=== PATIENT | male | born 1940 | race Hispanic/Latino ===

== ENCOUNTER 2020-01-30 07:13 | Day surgery (SDC) | payer OTHER ==
[2020-01-26 14:53] LABS: BASOPHILS % (AUTO) 0.4 % (0.0-5.0); EOSINOPHILS % (AUTO) 0.4 % (0.0-8.0); HEMATOCRIT 42.1 % (42-54); LYMPHOCYTES % (AUTO) 77.2 % (21.0-51.0); MEAN CORPUSCULAR HEMOGLOBIN 33.8 pg (27.0-33.0); MEAN CORPUSCULAR HGB CONC 34.2 g/dL (32.0-36.0); MEAN CORPUSCULAR VOLUME 98.8 fL (79-99); MONOCYTES % (AUTO) 2.4 % (3.0-13.0); NEUTROPHILS % (AUTO) 19.5 % (40.0-77.0); PLATELET COUNT (AUTO) 208 K/uL (130-400); RED BLOOD CELL COUNT(AUTO) 4.26 MIL/uL (4.50-6.20); RED CELL DISTRIBUTION WIDTH 11.9 % (11.0-15.5); WHITE BLOOD COUNT (AUTO) 21.9 K/uL (4.8-10.8)
[2020-01-26 14:56] LABS: APPEARANCE,URINE Clear (CLEAR); BILIRUBIN,URINE Negative (NEGATIVE); COLOR,URINE Yellow (YELLOW); GLUCOSE, URINE (UA) Negative (NEGATIVE); KETONES,URINE Negative (NEGATIVE); LEUKOCYTE ESTERASE ,URINE Negative (NEGATIVE); NITRATE,URINE Negative (NEGATIVE); OCCULT BLOOD,URINE Negative (NEGATIVE); PROTEIN,URINE Negative (NEGATIVE)
[2020-01-26 15:03] LABS: CREATININE 1.3 mg/dL (0.5-1.5); POTASSIUM 4.1 mmol/L (3.5-5.1)
[2020-01-26 15:04] LABS: INR 0.92 (0.85-1.15); PARTIAL THROMBOPLASTIN TIME 25.7 SEC (26.3-35.5)
[2020-01-26 15:51] LABS: BAND NEUTROPHILS % (MANUAL) 1 % (0-2); EOSINOPHILS % (MANUAL) 1 % (1-6); LYMPHOCYTES % (MANUAL) 46 % (22-44); MONOCYTES % (MANUAL) 1 % (2-9); REACTIVE LYMPHOCYTES 22 % (0-0); SEGMENTED NEUTROPHILS % 29 % (40-70)
[2020-01-26 15:52] LABS: MAN.DIFF COMMENT-IMPRESSION MANUAL DIFFERENTIAL
[2020-01-27 14:44] VITALS: BP 138/66
[2020-01-30] VITALS (9 sets, daily range): BP systolic 123–141; BP diastolic 62–86
[~2020-01-30] VITALS: Ht 172.7 cm; Wt 88.2 kg
[~2020-01-30 07:13] MED LIST: AMLO-97 PO; ASPI-1012 PO; CLON0.2T PO; FURO20TA4 PO; LEVO5TAB13 PO; MELO-108 PO; METO-409 PO; PRAV20TA4 PO; SITA100T12 PO; TAMS-1 PO; VITAMIN B12 PO
[2020-01-30] MEDS ORDERED: SODIUM CHLORIDE 0.9% 1000ML 1,000 ML IV ONE (07:37)
[2020-01-30] MEDS ORDERED: HEPARIN SODIUM 1000UNIT/ML 10ML VIAL ONE (08:37)
[2020-01-30] MEDS ORDERED: MIDAZOLAM HCL 1 MG/ML 2ML VIAL ONE (08:37)
[2020-01-30] MEDS ORDERED: NITROGLYCERIN 2 MG/VIAL VIAL IV ONE (08:37)
[2020-01-30] MEDS ORDERED: IOHEXOL 350 MG/ML 100ML INFUS..BTL IV ONE ×2 (08:37→11:07)
[2020-01-30] MEDS ORDERED: NICARDIPINE HCL 25 MG/10 ML ML IV ONE (08:37)
[2020-01-30] MEDS ORDERED: LIDOCAINE HCL 2% 20ML ONE (08:38)
[2020-01-30] MEDS ORDERED: FENTANYL CITRATE PF 50 MCG/1 ML 2ML VIAL ONE (08:38)
[2020-01-30] MEDS ORDERED: CLOPIDOGREL BISULFATE 300 MG TAB ONE (10:35)
[2020-01-30] MEDS ORDERED: ASPIRIN 325MG EC TAB 325 MG TABLET.DR PO ONE (10:35)
[2020-01-30] MEDS ORDERED: ATROPINE SULFATE 0.1 MG/ML 10 ML SYG IVP ONE (11:08)
[2020-01-30] MEDS ORDERED: LIDOCAINE PF 2% 5ML ABBOJECT ONE (11:08)
[2020-01-30] MEDS ORDERED: SODIUM CHLORIDE 0.9% 1000ML 1,000 ML IV SCH (12:30)
== END 2020-01-30 17:00 | disposition home or self-care (01) ==
LOC: DAH 07:13
PROVIDERS: ATTEND Internal Medicine Cardiovascular Disease
DX: I25.119 Atherosclerotic heart disease of native coronary artery with unspecified angina pectoris (principal); I10 Essential (primary) hypertension; E78.5 Hyperlipidemia, unspecified; M19.90 Unspecified osteoarthritis, unspecified site; N40.0 Benign prostatic hyperplasia without lower urinary tract symptoms; Z79.899 Other long term (current) drug therapy; Z79.84 Long term (current) use of oral hypoglycemic drugs; Z79.82 Long term (current) use of aspirin; Z79.01 Long term (current) use of anticoagulants; Z98.890 Other specified postprocedural states
CPT/HCPCS: 36415; 71045; 80048; 81003; 82948 ×2; 85025; 85347 ×2; 85610; 85730; 93005; 93458; A4215; A4216; A4221; A4222; A4223 ×2; A4663; C1725 ×3; C1760; C1769 ×2; C1874; C1887 ×3; C1894 ×4; C9600; J1644 ×3; J2250; J3010; J3490 ×3; J7030; Q9965 ×2; Q9967; 96360; 96361; 99156; 99157; J0461; J2001

== ENCOUNTER 2020-05-07 05:44 | Day surgery (SDC) | payer OTHER ==
[2020-05-03 13:56] LABS: BASOPHILS % (AUTO) 0.4 % (0.0-5.0); EOSINOPHILS % (AUTO) 0.6 % (0.0-8.0); HEMATOCRIT 43.9 % (42-54); LYMPHOCYTES % (AUTO) 67.6 % (21.0-51.0); MEAN CORPUSCULAR HGB CONC 35.1 g/dL (32.0-36.0); MEAN CORPUSCULAR VOLUME 96.9 fL (79-99); MONOCYTES % (AUTO) 2.5 % (3.0-13.0); NEUTROPHILS % (AUTO) 28.7 % (40.0-77.0); NUCLEATED RED BLOOD CELLS 0.1 % (0.0-0.19); PLATELET COUNT (AUTO) 199 K/uL (130-400); RED BLOOD CELL COUNT(AUTO) 4.53 MIL/uL (4.50-6.20); RED CELL DISTRIBUTION WIDTH 11.5 % (11.0-15.5); WHITE BLOOD COUNT (AUTO) 19.9 K/uL (4.8-10.8)
[2020-05-03 14:06] LABS: CREATININE 1.3 mg/dL (0.5-1.5); POTASSIUM 4.4 mmol/L (3.5-5.1)
[2020-05-03 14:09] LABS: PROTHROMBIN TIME 10.9 SEC (9.6-11.6)
[2020-05-03 14:10] LABS: APPEARANCE,URINE Clear (CLEAR); BILIRUBIN,URINE Negative (NEGATIVE); COLOR,URINE Yellow (YELLOW); GLUCOSE, URINE (UA) 250 mg/dL (NEGATIVE); KETONES,URINE Negative (NEGATIVE); LEUKOCYTE ESTERASE ,URINE Negative (NEGATIVE); NITRATE,URINE Negative (NEGATIVE); OCCULT BLOOD,URINE Negative (NEGATIVE); PROTEIN,URINE Trace mg/dL (NEGATIVE)
[2020-05-03 14:10] LABS: PARTIAL THROMBOPLASTIN TIME 26.9 SEC (26.3-35.5)
[2020-05-03 14:31] LABS: BACTERIA,URINE Rare /HPF (None Seen); MUCUS,URINE Rare LPF (None Seen); RBC,URINE 0-1 /HPF (0-1); SQUAMOUS EPITHELIAL CELL,UR Rare /HPF (0-2); WBC,URINE 0-1 /HPF (0-1)
[2020-05-03 14:32] LABS: HYALINE CASTS, URINE 0-1 /LPF (0-1 /LPF)
[2020-05-04 11:20] VITALS: BP 123/69
[~2020-05-07] VITALS: Ht 175.3 cm; Wt 89.8 kg
[2020-05-07] VITALS (8 sets, daily range): BP systolic 118–144; BP diastolic 64–79
[~2020-05-07 05:44] MED LIST changes: -ASPI-1012 PO; +ASPI-1197 PO; +CLOP75TA14 PO; +SODIUM CHLORIDE 0.9% 500ML 500 ML IV SCH
[2020-05-07] MEDS ORDERED: SODIUM CHLORIDE 0.9% 1000ML 1,000 ML IV ONE (06:24)
[2020-05-07] MEDS ORDERED: LIDOCAINE HCL 2% 20ML ONE (07:57)
[2020-05-07] MEDS ORDERED: HEPARIN SODIUM 1000UNIT/ML 10ML VIAL ONE (07:57)
[2020-05-07] MEDS ORDERED: IOHEXOL 350 MG/ML 100ML INFUS..BTL IV ONE ×2 (07:57→09:35)
[2020-05-07] MEDS ORDERED: NITROGLYCERIN 2 MG/VIAL VIAL IV ONE (07:57)
[2020-05-07] MEDS ORDERED: MIDAZOLAM HCL 1 MG/ML 2ML VIAL ONE (08:03)
[2020-05-07] MEDS ORDERED: FENTANYL CITRATE PF 50 MCG/1 ML 2ML VIAL ONE (08:04)
[2020-05-07] MEDS ORDERED: CLOPIDOGREL BISULFATE 300 MG TAB ONE (08:52)
[2020-05-07] MEDS ORDERED: ASPIRIN 325MG EC TAB 325 MG TABLET.DR PO ONE (08:52)
[2020-05-07] MEDS ORDERED: IOHEXOL-350 75 ML VIAL IV ONE (09:36)
[2020-05-07] MEDS ORDERED: SODIUM CHLORIDE 0.9% 1000ML 1,000 ML IV SCH (10:30)
== END 2020-05-07 14:18 | disposition home or self-care (01) ==
LOC: DAH 05:44
PROVIDERS: ATTEND Internal Medicine Cardiovascular Disease
DX: I25.119 Atherosclerotic heart disease of native coronary artery with unspecified angina pectoris (principal); I10 Essential (primary) hypertension; E11.9 Type 2 diabetes mellitus without complications; E78.5 Hyperlipidemia, unspecified; M19.90 Unspecified osteoarthritis, unspecified site; N40.0 Benign prostatic hyperplasia without lower urinary tract symptoms; Z79.82 Long term (current) use of aspirin; Z79.84 Long term (current) use of oral hypoglycemic drugs; Z79.899 Other long term (current) drug therapy; Z79.01 Long term (current) use of anticoagulants; Z95.5 Presence of coronary angioplasty implant and graft
CPT/HCPCS: 36415 ×2; 71045; 80048; 81001; 82948; 85025; 85347; 85610; 85730; 93005; 93454; 99283; A4215; A4216; A4221; A4222; A4223 ×3; A4606; A4663; C1725 ×2; C1760; C1769 ×2; C1874; C1887 ×2; C1894 ×2; C9600; J1644 ×3; J2250; J3010; J3490 ×3; J7030; Q9965 ×2; Q9967; 99156; 99157

== ENCOUNTER 2020-05-07 19:31 | Emergency (ER) | payer OTHER ==
[~2020-05-07 19:31] MED LIST changes: -SODIUM CHLORIDE 0.9% 500ML 500 ML IV SCH
[2020-05-07] MEDS ORDERED: TRANEXAMIC ACID 1000MG/10ML ONE (20:38)
== END 2020-05-07 22:15 | disposition home or self-care (01) ==
LOC: EDH 19:31
DX: I97.610 Postprocedural hemorrhage of a circulatory system organ or structure following a cardiac catheterization (principal); E11.9 Type 2 diabetes mellitus without complications; E78.00 Pure hypercholesterolemia, unspecified; I10 Essential (primary) hypertension
CPT/HCPCS: 99283; J3490